=== PATIENT | female | born 1980 | race Caucasian/White ===

== ENCOUNTER 2017-02-22 08:05 | Day surgery (SDC) | payer OTHER ==
[~2017-02-22 08:05] MED LIST: CEFAZOLIN SODIUM 2 GRAM PREMIX 100 ML IV ONE
[2017-02-22] MEDS ORDERED: LACTATED RINGERS 1,000 ML IV SCH ×3 (08:22→12:31)
[2017-02-22] MEDS ORDERED: CEFAZOLIN SODIUM 2 GRAM DUPLEX 2 G in Premix (D5W) 50 ml 1 EACH IV PRN (08:22)
[2017-02-22] MEDS ORDERED: LIDOCAINE 1% 2 ML VIAL ID PRN (08:22)
[2017-02-22] MEDS ORDERED: LIDOCAINE 1% (PRES FREE) 5 ML VIAL ONE (08:37)
[2017-02-22] MEDS ORDERED: FENTANYL 100 MCG/2 ML VIAL ONE ×3 (10:31→12:19)
[2017-02-22] MEDS ORDERED: MIDAZOLAM HCL 1 MG/ML 2ML VIAL ONE (10:31)
[2017-02-22] MEDS ORDERED: SCOPOLAMINE 1.5 MG/72 HR 1 EACH PATCH TD ONE (10:38)
[2017-02-22] MEDS ORDERED: DIPHENHYDRAMINE HCL 50 MG/1 ML VIAL ONE (11:23)
[2017-02-22] MEDS ORDERED: DEXAMETHASONE SOD PHOS 4 MG/1 ML VIAL ONE (11:23)
[2017-02-22] MEDS ORDERED: LIDOCAINE 2% (MULTI DOSE) 10 ML VIAL ONE (11:23)
[2017-02-22] MEDS ORDERED: PROPOFOL 60 ML IV ONE (11:23)
[2017-02-22] MEDS ORDERED: ONDANSETRON 4 MG/2ML 2 ML VIAL ONE (11:23)
[2017-02-22] MEDS ORDERED: ONDANSETRON 4 MG/2ML 2 ML VIAL IV PRN ×2 (11:31→12:31)
[2017-02-22] MEDS ORDERED: NALOXONE HCL 0.4 MG/ML VIAL IV PRN (11:31)
[2017-02-22] MEDS ORDERED: FENTANYL 100 MCG/2 ML VIAL IV PRN (11:31)
[2017-02-22] MEDS ORDERED: PROMETHAZINE HCL 25 MG/ML VIAL IM PRN (11:31)
[2017-02-22] MEDS ORDERED: HYDROMORPHONE HCL 1 MG/ML SYRINGE IV PRN (11:31)
[2017-02-22] MEDS ORDERED: ATROPINE SULFATE 0.4 MG/1 ML VIAL IV PRN (11:31)
[2017-02-22] MEDS ORDERED: KETOROLAC TROMETHAMINE 30 MG/ML 1 ML VIAL ONE (11:50)
[2017-02-22] MEDS ORDERED: OXYCODONE/ACETAMINOPHEN 5/325 MG TABLET PO PRN (12:31)
[2017-02-22] MEDS ORDERED: MAG HYDROX/AL HYDROX/SIMETH 30 ML UDCUP PO PRN (12:31)
[2017-02-22] MEDS ORDERED: BLISTEX LIPSTICK 1 EACH TP PRN (12:31)
[2017-02-22] MEDS ORDERED: ACETAMINOPHEN 325 MG TABLET PO PRN (12:31)
[2017-02-22] MEDS ORDERED: DOCUSATE SODIUM 100 MG CAPSULE PO PRN (12:31)
[2017-02-22] MEDS ORDERED: MENTHOL/CETYLPYRD 1 EACH LOZENGE PO PRN (12:31)
[2017-02-22] MEDS ORDERED: MAGNESIUM HYDROXIDE/AL HYDROX 30 ML UDCUP PO PRN (12:31)
[2017-02-22] MEDS ORDERED: KETOROLAC TROMETHAMINE 30 MG/ML 1 ML VIAL IV SCH (12:31)
[2017-02-22] MEDS ORDERED: PROMETHAZINE HCL 25 MG/ML VIAL IM ONE (12:54)
[2017-02-22] MEDS ORDERED: PROMETHAZINE HCL 25 MG/ML VIAL ONE (12:55)
--- NOTE | 2017-02-22 13:33 | OP ---
Kelin Green [id number] DATE OF PROCEDURE: 02/22/2017 PREOPERATIVE DIAGNOSIS: Menorrhagia. POSTOPERATIVE DIAGNOSIS: Menorrhagia. PROCEDURE: 1. Diagnostic hysteroscopy. 2. Endometrial ablation. 3. Dilation and curettage. 4. Removal of intrauterine device. SURGEON: Ganesh Rachel MD. ANESTHESIA: General. ESTIMATED BLOOD LOSS: 10 mL. COMPLICATIONS: None. OPERATIVE FINDINGS: Include normal appearing uterine cavity with no visible lesions or polyps. OPERATIVE COURSE: The patient was taken to the operating room and placed under general anesthesia. The patient was placed in lithotomy and prepped and draped in a sterile fashion. Bladder was emptied with a straight catheter. A weighted speculum was then placed and the cervix was grasped with a single tooth tenaculum. The intrauterine contraceptive device was grasped and easily removed and was noted to be complete. The cervix was dilated to accommodate a diagnostic hysteroscope. The hysteroscope was then placed in the uterine cavity was distended with saline. The cavity was surveyed and there was no masses or polyps noted. The hysteroscope was then removed and a gentle sharp curettage was performed for endometrial sampling and subsequently the uterine cavity assessment was then performed. The uterine cavity length was measured to be 5 cm with a width of 4.2 cm. The NovaSure instrument was then placed and deployed and the cavity assessment was then completed and found to be normal. The NovaSure was then started and the overall ablation time was 1 minute and 20 seconds. Subsequently, the instrument was then removed and the deployed tip was checked and found to be complete. A follow up hysteroscope was then performed which showed ablation of the endometrial cavity. All instruments were then removed at this time. The uterus was gently messaged. The patient was then recovered from anesthesia and taken to recovery room in stable condition. JOB: [id number]
[2017-02-22] MEDS ORDERED: OXYCODONE/ACETAMINOPHEN 5/325 MG TABLET ONE (13:38)
--- NOTE | 2017-02-28 14:21 | SURGPATH ---
[facility] [address] [place] [id number] Patient Name: SIMONA JULIEN MR#: [id number] : 1980 Gender: F Specimen #: [id number] Collected: 02/22/2017 Received: 02/25/2017 Reported: 02/26/2017 Submitting Phys: CLEMENTINA WALKER Copy To Phys: AMY LOZA [facility] Clinical History / Pre-Operative Diagnosis: MENORRHAGIA Specimen Source / Surgical Procedure Performed: ENDOMETRIAL CURETTINGS Interpretation: ENDOMETRIUM, CURETTINGS: - SECRETORY ENDOMETRIUM AND ENDOCERVICAL MUCOSA SHOWING PSEUDODECIDUALIZATION. - NO EVIDENCE OF CHRONIC ENDOMETRITIS, HYPERPLASIA, OR MALIGNANCY. Electronically Signed Out Terrell Nugent M.D., Ph.D. Gross Description: The specimen is received in a formalin filled container labeled with the patient's name and "endometrial curettings". An aggregate of matson tissue admixed with hemorrhagic and mucoid material is 2.5 x 1.5 x 0.4 cm. Totally embedded in one cassette. Emeka Briseno, P.A. Microscopic Description: Examination of multiple levels from the endometrial curetting shows fragments of secretory endometrium and endocervical mucosa with pseudodecidualization. There is no evidence of chronic endometritis, hyperplasia, or malignancy. 1: [id number] N92.0
== END 2017-02-22 14:20 | disposition home or self-care (01) ==
LOC: SDC 08:05
PROVIDERS: ATTEND Obstetrics & Gynecology
DX: N92.0 Excessive and frequent menstruation with regular cycle (principal); Z30.432 Encounter for removal of intrauterine contraceptive device; I11.9 Hypertensive heart disease without heart failure
CPT/HCPCS: 58563; 58301; J1200; J3010 ×3; J1100; A9270 ×2; J2550; J1885; J2250; J2405; J2001; J0690